=== PATIENT | male | born 1975 | race Caucasian/White ===

== ENCOUNTER 2019-10-17 12:14 | Emergency (ER) | payer OTHER ==
[2019-10-17] MEDS ORDERED: Aspirin 81 MG Tab.Chew PO ONE (12:30)
[2019-10-17] MEDS ORDERED: Sodium Chloride 0.9% 10 ML Syringe FLUSH PRN (12:30)
--- NOTE | 2019-10-17 14:47 | EDM.PDOC ---
ED HPI GENERAL MEDICAL PROBLEM - General Chief Complaint: Chest Pain Stated Complaint: CHEST TIGHTNESS Time Seen by Provider: 10/17/19 12:21 Source of Information: Reports: Patient History Limitations: Reports: No Limitations - History of Present Illness INITIAL COMMENTS - FREE TEXT/NARRATIVE: The patient presents with chest pain. This has been going on for about 1 to 2 weeks. At about that time he stopped drinking so much mountain dew. He has no shortness of breath. He described it as a tightness. He has no fever, chills, cough, congestion, runny nose, abdominal pain, nausea, vomiting, pain or swelling in his legs. He has no swelling or pain in his legs. He has no history of DVT or PE. He does smoke but he has no other medical problems such as hypertension, hypercholesterolemia or diabetes. Onset: Gradual Duration: Week(s): (2) Location: Reports: Chest Quality: Reports: Other (tightness) Severity: Mild Improves with: Reports: None Worsens with: Reports: None Associated Symptoms: Reports: Chest Pain. Denies: Cough, Fever/Chills, Headaches, Nausea/Vomiting, Shortness of Breath Left Chest Pain Score (Numeric/FACES): 2 - Related Data Allergies Allergy/AdvReac Type Severity Reaction Status Date / Time No Known Allergies Allergy Verified 10/17/19 12:22 Home Meds: Home Meds . [No Known Home Meds] 10/17/19 [History] Past Medical History Gastrointestinal History: Reports: Other (See Below) Other Gastrointestinal History: rectal abcess - Infectious Disease History Infectious Disease History: Reports: Chicken Pox Social & Family History - Family History Family Medical History: Noncontributory - Tobacco Use Smoking Status *Q: Current Every Day Smoker Years of Tobacco use: 20 Packs/Tins Daily: 0.2 - Caffeine Use Caffeine Use: Reports: Soda - Recreational Drug Use Recreational Drug Use: No ED ROS GENERAL - Review of Systems Review Of Systems: See Below Constitutional: Reports: No Symptoms HEENT: Reports: No Symptoms Respiratory: Reports: No Symptoms Cardiovascular: Reports: Chest Pain Endocrine: Reports: No Symptoms GI/Abdominal: Reports: No Symptoms : Reports: No Symptoms Musculoskeletal: Reports: No Symptoms ED EXAM, GENERAL - Physical Exam Exam: See Below Exam Limited By: No Limitations General Appearance: Alert, No Apparent Distress Ears: Normal External Exam Nose: Normal Inspection Head: Atraumatic, Normocephalic Neck: Normal Inspection Respiratory/Chest: No Respiratory Distress, Lungs Clear, Normal Breath Sounds Cardiovascular: Regular Rate, Rhythm, No Edema, No Murmur GI/Abdominal: Soft, Non-Tender, No Organomegaly, No Mass Back Exam: Normal Inspection Extremities: Normal Inspection Neurological: Alert, Oriented, No Motor/Sensory Deficits EKG INTERPRETATION EKG Date: 10/17/19 Time: 12:27 Rhythm: NSR Rate (Beats/Min): 79 [place]: Normal P-Wave: Present QRS: Normal ST-T: Normal QT: Normal Course - Vital Signs Last Recorded V/S: Last Vital Signs Temp 97.8 F 10/17/19 12:20 Pulse 78 10/17/19 12:20 Resp 19 10/17/19 12:20 BP 154/99 H 10/17/19 12:20 Pulse Ox 94 L 10/17/19 12:20 - Orders/Labs/Meds Orders: Active Orders 24 hr Category Date Time Status Cardiac Monitoring [RC] . DIRECTED Care 10/17/19 12:30 Active EKG Documentation Completion [RC] ASDIRECTED Care 10/17/19 14:37 Active EKG Documentation Completion [RC] STAT Care 10/17/19 12:31 Active Peripheral IV Care [RC] . DIRECTED Care 10/17/19 12:31 Active Chest 1V Frontal [CR] Stat Exams 10/17/19 12:31 Taken TROPONIN I [CHEM] Stat Lab 10/17/19 14:36 Ordered Sodium Chloride 0.9% [Saline Flush] Med 10/17/19 12:30 Active 10 ml FLUSH ASDIRECTED PRN Peripheral IV Insertion Adult [OM.PC] Stat Oth 10/17/19 12:30 Ordered EKG 12 Lead [EK] Stat Ther 10/17/19 14:37 Ordered Medication Orders Sodium Chloride (Saline Flush) 10 ml FLUSH ASDIRECTED PRN PRN Reason: Keep Vein Open Last Admin: 10/17/19 12:36 Dose: 10 ml Labs: Laboratory Tests 10/17/19 10/17/19 10/17/19 Range/Units 12:40 12:40 12:40 WBC 6.69 (4.23-9.07) K/mm3 RBC 5.46 (4.63-6.08) M/mm3 Hgb 16.0 (13.7-17.5) gm/dl Hct 46.5 (40.1-51.0) % MCV 85.2 (79.0-92.2) fl MCH 29.3 (25.7-32.2) pg MCHC 34.4 (32.2-35.5) g/dl RDW Std Deviation 42.0 (35.1-43.9) fL Plt Count 223 (163-337) K/mm3 MPV 10.4 (9.4-12.3) fl Neut % (Auto) 52.6 (34.0-67.9) % Lymph % (Auto) 35.9 (21.8-53.1) % Fisher % (Auto) 7.8 (5.3-12.2) % Eos % (Auto) 2.8 (0.8-7.0) Baso % (Auto) 0.6 (0.1-1.2) % Neut # (Auto) 3.52 (1.78-5.38) K/mm3 Lymph # (Auto) 2.40 (1.32-3.57) K/mm3 Fisher # (Auto) 0.52 (0.30-0.82) K/mm3 Eos # (Auto) 0.19 (0.04-0.54) K/mm3 Baso # (Auto) 0.04 (0.01-0.08) K/mm3 D-Dimer, Quantitative < 0.19 L (0.19-0.50) mg/L Sodium 137 (136-145) mEq/L Potassium 4.3 (3.5-5.1) mEq/L Chloride 100 (98-107) mEq/L Carbon Dioxide 26 (21-32) mEq/L Anion Gap 15.3 H (5-15) BUN 14 (7-18) mg/dL Creatinine 1.1 (0.7-1.3) mg/dL Est Cr Clr Drug Dosing 115.15 mL/min Estimated GFR (MDRD) > 60 (>60) mL/min BUN/Creatinine Ratio 12.7 L (14-18) Glucose 108 H (74-106) mg/dL Calcium 9.1 (8.5-10.1) mg/dL Total Bilirubin 0.3 (0.2-1.0) mg/dL AST 33 (15-37) U/L ALT (16-63) U/L Alkaline Phosphatase 104 (46-116) U/L Troponin I < 0.017 (0.00-0.056) ng/mL Total Protein 7.4 (6.4-8.2) g/dl Albumin 4.0 (3.4-5.0) g/dl Globulin 3.4 gm/dL Albumin/Globulin Ratio 1.2 (1-2) Meds: Medications Generic Name Dose Route Start Last Admin Trade Name Freq PRN Reason Stop Dose Admin Sodium Chloride 10 ml 10/17/19 12:30 10/17/19 12:36 Saline Flush FLUSH 10 ml ASDIRECTED PRN Administration Keep Vein Open Discontinued Medications Generic Name Dose Route Start Last Admin Trade Name Freq PRN Reason Stop Dose Admin Aspirin 324 mg 10/17/19 12:30 10/17/19 12:36 Aspirin PO 10/17/19 12:31 324 mg ONETIME ONE Administration - Re-Assessments/Exams Free Text/Narrative Re-Assessment/Exam: 10/17/19 14:52 I ordered an IV saline lock, EKG, CXR, labs and aspirin. His EKG shows a NSR with no acute changes. His CXR looks good. His CBC and CMP look good. His troponin is negative. His D-dimer is negative. I have ordered a repeat EKG and troponin. Departure - Departure Time of Disposition: 15:00 Disposition: Home, Self-Care 01 Condition: Good Clinical Impression: Atypical chest pain Referrals: Lucius Morrison Jr, MD [Primary Care Provider] - 1 Week Forms: ED Department Discharge Additional Instructions: Take motrin or tylenol for the pain. Please return if you are worse. Follow up with your doctor within a week. Sepsis Event Note - Evaluation Sepsis Screening Result: No Definite Risk - Focused Exam Vital Signs: Vital Signs Temp Pulse Resp BP Pulse Ox 10/17/19 12:20 97.8 F 78 19 154/99 H 94 L Date Exam was Performed: 10/17/19 Time Exam was Performed: 14:54 - My Orders Last 24 Hours: My Active Orders 10/17/19 12:30 Cardiac Monitoring [RC] . DIRECTED Sodium Chloride 0.9% [Saline Flush] 10 ml FLUSH ASDIRECTED PRN Peripheral IV Insertion Adult [OM.PC] Stat 10/17/19 12:31 EKG Documentation Completion [RC] STAT Peripheral IV Care [RC] . DIRECTED Chest 1V Frontal [CR] Stat 10/17/19 14:36 TROPONIN I [CHEM] Stat 10/17/19 14:37 EKG Documentation Completion [RC] ASDIRECTED EKG 12 Lead [EK] Stat - Assessment/Plan Last 24 Hours: My Active Orders 10/17/19 12:30 Cardiac Monitoring [RC] . DIRECTED Sodium Chloride 0.9% [Saline Flush] 10 ml FLUSH ASDIRECTED PRN Peripheral IV Insertion Adult [OM.PC] Stat 10/17/19 12:31 EKG Documentation Completion [RC] STAT Peripheral IV Care [RC] . DIRECTED Chest 1V Frontal [CR] Stat 10/17/19 14:36 TROPONIN I [CHEM] Stat 10/17/19 14:37 EKG Documentation Completion [RC] ASDIRECTED EKG 12 Lead [EK] Stat
--- NOTE | 2019-10-17 16:41 | CR ---
Chest: Portable view of the chest was obtained. Comparison: No prior chest imaging is available. Heart size and mediastinum are normal. Lungs are clear. Slight scoliosis is noted within the spine. Mild endplate spurring is noted within the spine. Impression: 1. Incidental findings. Nothing acute is appreciated. Diagnostic code #2 This report was dictated in Mountain Standard Time
== END 2019-10-17 15:11 | disposition home or self-care (01) ==
LOC: JD.ED 12:14
DX: R07.89 Other chest pain (principal); F17.210 Nicotine dependence, cigarettes, uncomplicated
CPT/HCPCS: 36415; 71045; 80053; 84484; 85025; 85379; 93005; 99285; A9270; 93010; 99284

== ENCOUNTER 2020-02-27 18:57 | Emergency (ER) | payer OTHER ==
[2020-02-27] MEDS ORDERED: Alum Hydrox/Mag Hydrox/Simeth 30 ML, Lidocaine 2% 15 ML PO STA ×2 (19:46)
--- NOTE | 2020-02-27 19:51 | EDM.PDOC ---
ED HPI GENERAL MEDICAL PROBLEM - General Chief Complaint: Respiratory Problem Stated Complaint: CHEST TIGHTNESS/HURTS WHEN HE BREATHES IN Time Seen by Provider: 02/27/20 19:24 Source of Information: Reports: Patient, Other (Friend) History Limitations: Reports: No Limitations - History of Present Illness INITIAL COMMENTS - FREE TEXT/NARRATIVE: Mr. Kahn is a very pleasant 44-year-old gentleman with a past medical history significant for untreated GERD, who now presents to the ED stating that he developed upper chest tightness around 13:00 this afternoon, which developed int o a pleuritic pain with inspiration around 17:00. His pain is also made worse if he is supine. He took 2 full-strength aspirin around 18:15. No prior similar symptoms. The patient states that he is not exactly dyspneic, rather, it is painful for him to breathe. He also states that he felt feverish, insofar as he felt sweaty, around 13:00, but that he took some Tylenol, and now he feels better in that regard. Here in the ED, the patient's initial BP is found to be slightly elevated at 147/87, otherwise, he is hemodynamically stable, afebrile, saturating 95% on room air. Other than today's symptoms, the patient denies recent fever, chills, sore throat, ear pain, nasal or sinus congestion, cough, dyspnea, chest pain, palpitations, nausea, vomiting, constipation, diarrhea, abdominal pain, urinary symptoms, recent weight gain or weight loss, recent bloody bowel movements or black bowel movements, recent joint aches, headaches, or rashes. The patient states that he returned from a trip to [place] last week, however, he denies any recent edema. The patient's PCP is Dr. Lucius Morrison. Chest Pain Score (Numeric/FACES): 7 - Related Data Allergies Allergy/AdvReac Type Severity Reaction Status Date / Time No Known Allergies Allergy Verified 02/27/20 19:19 Home Meds: Home Meds . [No Known Home Meds] 10/17/19 [History] Past Medical History Gastrointestinal History: Reports: GERD (untreated), Other (See Below) (Perirectal abcess) Musculoskeletal History: Reports: Fracture (Right foot) Endocrine/Metabolic History: Reports: Obesity/BMI 30+ - Infectious Disease History Infectious Disease History: Reports: Chicken Pox - Past Surgical History HEENT Surgical History: Reports: Oral Surgery (wisdom teeth extraction) Musculoskeletal Surgical History: Reports: Other (See Below) (Right 4th 4th finger I & D. Right foot fracture repair.) Social & Family History - Family History Family Medical History: Noncontributory - Tobacco Use Smoking Status *Q: Current Every Day Smoker Years of Tobacco use: 21 Packs/Tins Daily: 1 - Caffeine Use Caffeine Use: Reports: Soda (Large amounts of Mountain Dew) - Alcohol Use Alcohol Use History: Yes Alcohol Use Frequency: Rarely - Recreational Drug Use Recreational Drug Use: No - Living Situation & Occupation Living situation: Reports: Single, with Significant Other (Girlfriend) Occupation: Employed (Drill pipeline superintendent division) ED ROS GENERAL - Review of Systems Review Of Systems: Comprehensive ROS is negative, except as noted in HPI. ED EXAM, GENERAL - Physical Exam Exam: See Below Exam Limited By: No Limitations General Appearance: Alert, WD/WN, Mild Distress (appears uncomfortable) Eye Exam: Bilateral Eye: EOMI, Normal Inspection Ears: Normal External Exam, Hearing Grossly Normal Nose: Normal Inspection Throat/Mouth: Normal Inspection, Normal Lips, Normal Voice, No Airway Compromise Head: Atraumatic, Normocephalic Neck: Normal Inspection, Full Range of Motion Respiratory/Chest: No Respiratory Distress, Lungs Clear, Normal Breath Sounds, No Accessory Muscle Use, Chest Non-Tender (including the bilateral upper chest). No: Decreased Breath Sounds, Crackles, Rhonchi, Wheezing, Stridor, Prolonged Expiration Cardiovascular: Normal Peripheral Pulses, Regular Rate, Rhythm, No Edema, No Gallop, No JVD, No Murmur, No Rub Peripheral Pulses: 3+: Radial (L), Radial (R) GI/Abdominal: Normal Bowel Sounds, Soft, Non-Tender, No Organomegaly, No Distention, No Abnormal Bruit, No Mass (Male) Exam: Deferred Back Exam: Normal Inspection, Full Range of Motion, NT Extremities: Normal Inspection, Normal Range of Motion, No Pedal Edema, Normal Capillary Refill Neurological: Alert, Oriented, Normal Cognition, No Motor/Sensory Deficits Psychiatric: Normal Affect Skin Exam: Warm, Dry, Intact, Normal Color, No Rash EKG INTERPRETATION EKG Date: 02/27/20 Time: 20:10 Rhythm: NSR Rate (Beats/Min): 88 [place]: Normal P-Wave: Present QRS: Normal ST-T: Normal QT: Normal Comparison: No Change (10/17/2019) Course - Vital Signs Last Recorded V/S: Last Vital Signs Temp 36.5 C 02/27/20 19:17 Pulse 99 02/27/20 21:45 Resp 18 02/27/20 21:45 BP 144/99 H 02/27/20 21:45 Pulse Ox 95 02/27/20 21:45 - Orders/Labs/Meds Orders: Active Orders 24 hr Category Date Time Status EKG Documentation Completion [RC] STAT Care 02/27/20 19:44 Active PRO B-TYPE NATRIUR PEPT,BNPPRO [CHEM] Stat Lab 02/27/20 20:06 Received Labs: Laboratory Tests 02/27/20 02/27/20 02/27/20 Range/Units 20:06 20:06 20:06 WBC 13.56 H (4.23-9.07) K/mm3 RBC 5.43 (4.63-6.08) M/mm3 Hgb 15.5 (13.7-17.5) gm/dl Hct 46.2 (40.1-51.0) % MCV 85.1 (79.0-92.2) fl MCH 28.5 (25.7-32.2) pg MCHC 33.5 (32.2-35.5) g/dl RDW Std Deviation 41.0 (35.1-43.9) fL Plt Count 264 (163-337) K/mm3 MPV 10.4 (9.4-12.3) fl Neutrophils % (Manual) 76 H (40-60) % Band Neutrophils % 0 (0-10) % Lymphocytes % (Manual) 18 L (20-40) % Atypical Lymphs % 0 % Monocytes % (Manual) 5 (2-10) % Eosinophils % (Manual) 1 (0.8-7.0) % Basophils % (Manual) 0 L (0.2-1.2) Platelet Estimate Adequate RBC Morph Comment Normal D-Dimer, Quantitative 0.24 (0.19-0.50) mg/L Sodium 143 (136-145) mEq/L Potassium 3.9 (3.5-5.1) mEq/L Chloride 104 (98-107) mEq/L Carbon Dioxide 27 (21-32) mEq/L Anion Gap 15.9 H (5-15) BUN 14 (7-18) mg/dL Creatinine 1.4 H (0.7-1.3) mg/dL Est Cr Clr Drug Dosing 90.48 mL/min Estimated GFR (MDRD) 55 (>60) mL/min BUN/Creatinine Ratio 10.0 L (14-18) Glucose 118 H (74-106) mg/dL Calcium 9.1 (8.5-10.1) mg/dL Total Bilirubin 0.4 (0.2-1.0) mg/dL AST 31 (15-37) U/L ALT 44 (16-63) U/L Alkaline Phosphatase 97 (46-116) U/L Troponin I < 0.017 (0.00-0.056) ng/mL Total Protein 7.6 (6.4-8.2) g/dl Albumin 3.8 (3.4-5.0) g/dl Globulin 3.8 gm/dL Albumin/Globulin Ratio 1.0 (1-2) Meds: Medications Discontinued Medications Generic Name Dose Route Start Last Admin Trade Name Freq PRN Reason Stop Dose Admin Al Hydroxide/Mg Hydroxide 30 0 ml 02/27/20 19:46 02/27/20 20:09 ml/ Lidocaine HCl 15 ml PO 02/27/20 19:47 45 ml ONETIME STA Administration Hydromorphone HCl 1 mg 02/27/20 21:10 02/27/20 21:17 Dilaudid IM 02/27/20 21:11 1 mg ONETIME ONE Administration - Re-Assessments/Exams Free Text/Narrative Re-Assessment/Exam: 02/27/20 19:46 As above, the patient developed upper chest tightness around 13:00 this afternoon, which became a pleuritic pain around 17:00, made worse if he is supine. No actual dyspnea other than it is painful to breathe. His exam is unremarkable. I have ordered a workup that includes bloodwork, a chest XRay, and an ECG. In the meantime, the patient will be given a GI cocktail, to see if that has any effect. 02/27/20 20:32 Two-view chest radiograph appears to be grossly normal. The cardiac silhouette is within normal limits. No pulmonary vascular congestion. No pleural effusions. No focal infiltrate. No pneumothorax. Formal read per the Radiologist pending. 02/27/20 20:58 The patient's CBC is remarkable for a WBC count elevated at 13.56, but with 0% bandemia. The remainder of his CBC is unremarkable. His CMP is remarkable for an anion gap slightly elevated at 15.9, but with a bicarbonate normal at 27. His Cr is elevated at 1.4, but with a BUN normal at 14. The remainder of his CMP is unremarkable. His troponin is undetectably low. His D-dimer is within normal limits at 0.24. Notified by lab that the BNP is indefinitely delayed, however, since the patient does not have opacities on his chest x-ray, the BNP is clinically irrelevant. 02/27/20 21:11 The patient states that the GI cocktail did nothing for his pain. He is requesting something for pain. I have ordered IM Dilaudid. 02/27/20 21:24 Test results discussed with the patient and his friend. As above, the patient has a mildly elevated WBC count, but with no left shift, and he has some new renal insufficiency since October, but nothing in his work-up tonight that would explain his upper chest pain. The patient mentioned that he "dislocated" his neck about 10 days ago, by which he means that he ian it while mowing the lawn. He was experiencing some neck pain, and stated that he treated it with "quite a bit" of ibuprofen. I confirmed that nerve irritation or impingement could be responsible for his chest pain, however, even with high doses, I doubt that 10 days of ibuprofen would cause renal insufficiency. Going forward, I recommended that he switch to Tylenol instead of ibuprofen, and drink plenty of fluids. His friend mentioned that he drinks a lot of Mountain Dew, and since caffeine can be of diuretic, I recommended that perhaps he drink less of that. I recommended that he follow-up with his PCP, Dr. Lucius Morrison, to discuss the option of getting an MRI of his neck to see if there is any nerve irritation or impingement. The patient said that he will likely wait a while, to see if he gets better or worse, before going to Dr. Morrison. Departure - Departure Time of Disposition: 21:26 Disposition: Home, Self-Care 01 Condition: Good Clinical Impression: Chest pain of uncertain etiology, Acute renal insufficiency - Discharge Information *PRESCRIPTION DRUG MONITORING PROGRAM REVIEWED*: Not Applicable *COPY OF PRESCRIPTION DRUG MONITORING REPORT IN PATIENT COREY: Not Applicable Instructions: Acute Kidney Injury, Adult, Nonspecific Chest Pain, Adult, [id number] Referrals: Lucius Morrison Jr, MD [Primary Care Provider] - Forms: ED Department Discharge Additional Instructions: You were seen in the emergency room after developing chest discomfort that de veloped into chest pain with inspiration. Work-up in the ER included blood work, a chest x-ray, and an ECG. Your blood work found that your kidney function is lightly impaired, whereas it was normal in October. The remainder of your work-up, however, was unremarkable, and does not explain the cause of your pain. It is possible that your chest pain is due to nerve irritation or impingement from your neck. Because of your kidney dysfunction, we recommend that you stop taking ibuprofen. You may take [id number] Tylenol as needed for discomfort. We recommend that you stay well-hydrated, and consider decreasing the amount of Mountain Dew that you drink. We recommend that you follow-up with your PCP, Dr. Lucius Morrison, to discuss getting an MRI of your neck, to look for nerve irritation or impingement. If any other problems, please do not hesitate to return to the ER. Sepsis Event Note (ED) - Evaluation Sepsis Screening Result: No Definite Risk - Focused Exam Vital Signs: Vital Signs Temp Pulse Resp BP Pulse Ox 02/27/20 21:45 99 18 144/99 H 95 02/27/20 19:17 36.5 C 95 18 147/87 H 95 - My Orders Last 24 Hours: My Active Orders 02/27/20 19:44 EKG Documentation Completion [RC] STAT 02/27/20 20:06 PRO B-TYPE NATRIUR PEPT,BNPPRO [CHEM] Stat - Assessment/Plan Last 24 Hours: My Active Orders 02/27/20 19:44 EKG Documentation Completion [RC] STAT 02/27/20 20:06 PRO B-TYPE NATRIUR PEPT,BNPPRO [CHEM] Stat
--- NOTE | 2020-02-27 20:39 | CR ---
Chest: 2 views of the chest were obtained. Comparison: Prior chest x-ray of 10/17/19. Central lung markings are slightly increased believed to represent mild bronchitis. Lungs otherwise are clear. No alveolar type densities are seen. Heart size and mediastinum are normal. Scoliosis is noted within the spine with scattered degenerative change. Impression: 1. Central lung markings are slightly increased possibly due to mild bronchitis. 2. Other findings believed to be chronic. Diagnostic code #3 Study was dictated in MDT
[2020-02-27] MEDS ORDERED: HYDROmorphone 1 MG/ML Syringe IM ONE (21:10)
== END 2020-02-27 21:45 | disposition home or self-care (01) ==
LOC: JD.ED 18:57
DX: R07.89 Other chest pain (principal); N28.9 Disorder of kidney and ureter, unspecified; E66.9 Obesity, unspecified; F17.210 Nicotine dependence, cigarettes, uncomplicated; Z68.27 Body mass index [BMI] 27.0-27.9, adult
CPT/HCPCS: 36415; 71046; 80053; 83880; 84484; 85007; 85027; 85379; 93005; 96372; 99285; A9270; J1170; 93010; 99284

== ENCOUNTER 2021-02-24 11:00 | Day surgery (SDC) | payer OTHER ==
--- NOTE | 2021-02-24 11:45 | EDM.PDOC ---
ED HPI GENERAL MEDICAL PROBLEM - General Chief Complaint: Skin Complaint Stated Complaint: ABSCESS NEAR BUTTOCK Time Seen by Provider: 02/24/21 11:12 Source of Information: Reports: Patient, RN Notes Reviewed History Limitations: Reports: No Limitations - History of Present Illness INITIAL COMMENTS - FREE TEXT/NARRATIVE: Patient is a 45-year-old male presenting to the emergency department with complaints of abscess near his buttocks. He reports for the last week he has been having discomfort in this area that has been progressively worsening. Complains of pain with coughing or sneezing. It is not painful to have a bowel movement however. He does have a history of perirectal abscess a number of years ago which required surgical I&D. He denies any fever, chills, nausea, or vomiting. Reports that he has not ate or drink since last evening in anticipation of coming in this morning. Left Upper Anus Pain Score (Numeric/FACES): 4 - Related Data Allergies Allergy/AdvReac Type Severity Reaction Status Date / Time Contrast Dye Allergy Nausea Uncoded 02/24/21 11:12 Home Meds: Home Meds . [No Known Home Meds] 10/17/19 [History] Past Medical History Cardiovascular History: Reports: None Respiratory History: Reports: None Gastrointestinal History: Reports: GERD, Other (See Below) Other Gastrointestinal History: rectal abcess Genitourinary History: Reports: None Musculoskeletal History: Reports: Fracture Neurological History: Reports: None Psychiatric History: Reports: None Endocrine/Metabolic History: Reports: Obesity/BMI 30+ Hematologic History: Reports: None Immunologic History: Reports: None Oncologic (Cancer) History: Reports: None Dermatologic History: Reports: None - Infectious Disease History Infectious Disease History: Reports: Chicken Pox - Past Surgical History HEENT Surgical History: Reports: Oral Surgery Musculoskeletal Surgical History: Reports: Other (See Below) Other Musculoskeletal Surgeries/Procedures:: R foot surgery, R hand surgery Social & Family History - Family History Family Medical History: No Pertinent Family History HEENT: Reports: None Cardiac: Reports: None Respiratory: Reports: None GI: Reports: None : Reports: None OBGYN: Reports: None Musculoskeletal: Reports: None Neurological: Reports: None Psychiatric: Reports: None Endocrine/Metabolic: Reports: None Hematologic: Reports: None Oncologic: Reports: None - Tobacco Use Tobacco Use Status *Q: Current Every Day Tobacco User Years of Tobacco use: 24 Packs/Tins Daily: 1.5 - Caffeine Use Caffeine Use: Reports: Soda - Recreational Drug Use Recreational Drug Use: No - Living Situation & Occupation Living situation: Reports: Single, with Significant Other (Girlfriend) Occupation: Employed (Drill pipe installer) ED ROS GENERAL - Review of Systems Review Of Systems: See Below ED EXAM, SKIN/RASH Exam: See Below Exam Limited By: No Limitations General Appearance: Alert, WD/WN, No Apparent Distress Respiratory/Chest: No Respiratory Distress, Lungs Clear, Normal Breath Sounds, No Accessory Muscle Use, Chest Non-Tender Cardiovascular: Normal Peripheral Pulses, Regular Rate, Rhythm, No Edema, No Gallop, No JVD, No Murmur, No Rub Rectal (Males) Exam: Perirectal Abscess (Palpable area of tenderness approximately 3 cm proximal to the rectum.) Neurological: Alert, Oriented, CN II-XII Intact, Normal Cognition, Normal Gait, Normal Reflexes, No Motor/Sensory Deficits Psychiatric: Normal Affect, Normal Mood Course - Vital Signs Last Recorded V/S: Last Vital Signs Temp 97.3 F 02/24/21 11:18 Pulse 73 02/24/21 11:18 Resp 18 02/24/21 11:18 BP 123/72 02/24/21 11:18 Pulse Ox 98 02/24/21 11:18 - Orders/Labs/Meds Orders: Active Orders 24 hr Category Date Time Status Patient Status [ADT] Routine ADT 02/24/21 12:06 Active C-REACTIVE PROTEIN [CHEM] Stat Lab 02/24/21 11:56 Received COMPREHENSIVE METABOLIC PN,CMP [CHEM] Stat Lab 02/24/21 11:56 Received CORONAVIRUS COVID-19 EMILY [MOLEC] Routine Lab 02/24/21 11:58 Received Schedule Procedure [COMM] Stat Oth 02/24/21 12:07 Ordered Labs: Laboratory Tests 02/24/21 Range/Units 11:56 WBC 9.55 H (4.23-9.07) K/mm3 RBC 5.31 (4.63-6.08) M/mm3 Hgb 15.5 (13.7-17.5) gm/dl Hct 45.7 (40.1-51.0) % MCV 86.1 (79.0-92.2) fl MCH 29.2 (25.7-32.2) pg MCHC 33.9 (32.2-35.5) g/dl RDW Std Deviation 43.9 (35.1-43.9) fL Plt Count 189 D (163-337) K/mm3 MPV 10.4 (9.4-12.3) fl Neut % (Auto) 70.0 H (34.0-67.9) % Lymph % (Auto) 21.7 L (21.8-53.1) % [place] % (Auto) 6.7 (5.3-12.2) % Eos % (Auto) 1.3 (0.8-7.0) Baso % (Auto) 0.2 (0.1-1.2) % Neut # (Auto) 6.69 H (1.78-5.38) K/mm3 Lymph # (Auto) 2.07 (1.32-3.57) K/mm3 [place] # (Auto) 0.64 (0.30-0.82) K/mm3 Eos # (Auto) 0.12 (0.04-0.54) K/mm3 Baso # (Auto) 0.02 (0.01-0.08) K/mm3 Meds: Medications Discontinued Medications Generic Name Dose Route Start Last Admin Trade Name Freq PRN Reason Stop Dose Admin Bupivacaine HCl/Epinephrine Bitart Confirm 02/24/21 12:28 Bupivacaine 0.5%/Epinephrine 1:200,000 50 Ml Mdv Administered 02/24/21 12:29 Dose 50 ml .ROUTE .STK-MED ONE Fentanyl Confirm 02/24/21 11:59 Fentanyl 250 Mcg/5 Ml Sdv Administered 02/24/21 12:00 Dose 250 mcg .ROUTE .STK-MED ONE Lidocaine HCl Confirm 02/24/21 11:58 Xylocaine-Mpf 1% Administered 02/24/21 11:59 Dose 4 mls @ as directed .ROUTE .STK-MED ONE Midazolam HCl Confirm 02/24/21 11:59 Midazolam 1 Mg/Ml 2 Ml Sdv Administered 02/24/21 12:00 Dose 2 mg .ROUTE .STK-MED ONE Ondansetron HCl Confirm 02/24/21 11:58 Ondansetron 4 Mg/2 Ml Sdv Administered 02/24/21 11:59 Dose 4 mg .ROUTE .STK-MED ONE Propofol Confirm 02/24/21 11:59 Propofol 200 Mg/20 Ml Sdv Administered 02/24/21 12:00 Dose 200 mg .ROUTE .STK-MED ONE - Re-Assessments/Exams Free Text/Narrative Re-Assessment/Exam: Patient is a 45-year-old male presenting to the emergency department with complaints of perirectal abscess. On exam, he does have a palpable area of induration and tenderness approximately 3 cm proximal to the rectum. I have ordered blood work and Covid screen. Case was discussed with surgeon on-call, Dr. Gary. He will be in to see the patient. Patient has not ate or drink since last evening. 02/24/21 12:34 Dr. Gary was here to evaluate patient. He will take him to the OR for surgical I&D. Departure - Departure Time of Disposition: 12:34 Disposition: DC/Tfer to [facility] Condition: Good Clinical Impression: Perirectal abscess - Discharge Information Sepsis Event Note (ED) - Evaluation Sepsis Screening Result: No Definite Risk - Focused Exam Vital Signs: Vital Signs Temp Pulse Resp BP Pulse Ox 02/24/21 11:18 97.3 F 73 18 123/72 98 - My Orders Last 24 Hours: My Active Orders 02/24/21 11:56 C-REACTIVE PROTEIN [CHEM] Stat COMPREHENSIVE METABOLIC PN,CMP [CHEM] Stat 02/24/21 11:58 CORONAVIRUS COVID-19 EMILY [MOLEC] Routine 02/24/21 12:06 Patient Status [ADT] Routine - Assessment/Plan Last 24 Hours: My Active Orders 02/24/21 11:56 C-REACTIVE PROTEIN [CHEM] Stat COMPREHENSIVE METABOLIC PN,CMP [CHEM] Stat 02/24/21 11:58 CORONAVIRUS COVID-19 EMILY [MOLEC] Routine 02/24/21 12:06 Patient Status [ADT] Routine
[2021-02-24] MEDS ORDERED: Lidocaine 1% 4 ML ONE (11:58)
[2021-02-24] MEDS ORDERED: Ondansetron 4 MG/2 ML SDV ONE (11:58)
[2021-02-24] MEDS ORDERED: Propofol 200 MG/20 ML SDV ONE ×2 (11:59→12:59)
[2021-02-24] MEDS ORDERED: fentaNYL 250 MCG/5 ML SDV ONE (11:59)
[2021-02-24] MEDS ORDERED: Midazolam 1 MG/ML 2 ML SDV ONE (11:59)
--- NOTE | 2021-02-24 12:15 | PCM.PREANE ---
Preanesthetic Assessment - Procedure Proposed Procedure: Rectal abscess drainage - Anesthesia/Transfusion/Family Hx Anesthesia History: Prior Anesthesia Without Reaction Family History of Anesthesia Reaction: No Transfusion History: No Prior Transfusion(s) Intubation History: Unknown - Review of Systems General: No Symptoms Pulmonary: No Symptoms Cardiovascular: No Symptoms Gastrointestinal: No Symptoms Neurological: No Symptoms Other: Reports: None - Physical Assessment NPO Status Date: 02/23/21 NPO Status Time: 20:00 Vital Signs: Last Vital Signs Temp 97.3 F 02/24/21 11:18 Pulse 73 02/24/21 11:18 Resp 18 02/24/21 11:18 BP 123/72 02/24/21 11:18 Pulse Ox 98 02/24/21 11:18 1200: 98/67 HR 79 94% RR 16 Height: 2.03 m Weight: 115.984 kg ASA Class: 2 Mental Status: Alert & Oriented x3 Airway Class: Mallampati = 2 Dentition: Reports: Missing Tooth/Teeth (Missing teeth, no loose teeth), Caries Thyro-Mental Finger Breadths: 3 Mouth Opening Finger Breadths: 3 ROM/Head Extension: Full Lungs: Clear to Auscultation, Normal Respiratory Effort Cardiovascular: Regular Rate, Regular Rhythm - Lab Values: Labs reviewed and okay to proceed - Allergies Allergies/Adverse Reactions: Allergies Allergy/AdvReac Type Severity Reaction Status Date / Time Contrast Dye Allergy Nausea Uncoded 02/24/21 11:12 - Blood Blood Available: No Product(s) Available: None - Anesthesia Plan Pre-Op Medication Ordered: None - Acknowledgements Anesthesia Type Planned: MAC Pt an Appropriate Candidate for the Planned Anesthesia: Yes Alternatives and Risks of Anesthesia Discussed w Pt/Guardian: Yes Pt/Guardian Understands and Agrees with Anesthesia Plan: Yes PreAnesthesia Questionnaire Cardiovascular History: Reports: None Respiratory History: Reports: None Gastrointestinal History: Reports: GERD, Other (See Below) Other Gastrointestinal History: rectal abcess Genitourinary History: Reports: None Musculoskeletal History: Reports: Fracture (left foot) Neurological History: Reports: None Psychiatric History: Reports: None Endocrine/Metabolic History: Reports: Obesity/BMI 30+ Hematologic History: Reports: None Immunologic History: Reports: None Oncologic (Cancer) History: Reports: None Dermatologic History: Reports: None - Infectious Disease History Infectious Disease History: Reports: Chicken Pox - Past Surgical History HEENT Surgical History: Reports: Oral Surgery Musculoskeletal Surgical History: Reports: Other (See Below) Other Musculoskeletal Surgeries/Procedures:: R foot surgery, R hand surgery - SUBSTANCE USE Tobacco Use Status *Q: Current Every Day Tobacco User Tobacco Use Within Last Twelve Months: Cigarettes Second Hand Smoke Exposure: No Days Per Week of Alcohol Use: 0 Number of Drinks Per Day: 0 Total Drinks Per Week: 0 Recreational Drug Use History: No - HOME MEDS Home Medications: Home Meds . [No Known Home Meds] 10/17/19 [History] - CURRENT (IN HOUSE) MEDS Current Meds: Current Medications Discontinued Medications Fentanyl (Fentanyl 250 Mcg/5 Ml Sdv) Confirm Administered Dose 250 mcg .ROUTE .STK-MED ONE Stop: 02/24/21 12:00 Lidocaine HCl (Xylocaine-Mpf 1%) Confirm Administered Dose 4 mls @ as directed .ROUTE .STK-MED ONE Stop: 02/24/21 11:59 Midazolam HCl (Midazolam 1 Mg/Ml 2 Ml Sdv) Confirm Administered Dose 2 mg .ROUTE .STK-MED ONE Stop: 02/24/21 12:00 Ondansetron HCl (Ondansetron 4 Mg/2 Ml Sdv) Confirm Administered Dose 4 mg .ROUTE .STK-MED ONE Stop: 02/24/21 11:59 Propofol (Propofol 200 Mg/20 Ml Sdv) Confirm Administered Dose 200 mg .ROUTE .STK-MED ONE Stop: 02/24/21 12:00
--- NOTE | 2021-02-24 12:19 | PCM.HP.2 ---
H&P History of Present Illness - General Date of Service: 02/24/21 Admit Problem/Dx: Admission Diagnosis/Problem Admission Diagnosis/Problem Perirectal abscess Source of Information: Patient History Limitations: Reports: No Limitations - History of Present Illness Initial Comments - Free Text/Narative: Mr. Kahn is a 45 yo man who presents with perianal pain. He has a history of perirectal abscess which was surgically drained about 4 years ago. He started noticing symptoms about four days ago. He has no history of Crohn disease or anal fistulae. He has not had any drainage around his anus. He thinks the area of tenderness is in the same place as prior. He has not been feeling sick or feverish. He does smoke cigarettes. Left Upper Anus Pain Score (Numeric/FACES): 4 - Related Data Allergies/Adverse Reactions: Allergies Allergy/AdvReac Type Severity Reaction Status Date / Time Contrast Dye Allergy Nausea Uncoded 02/24/21 11:12 Home Medications: Home Meds . [No Known Home Meds] 10/17/19 [History] Past Medical History Cardiovascular History: Reports: None Respiratory History: Reports: None Gastrointestinal History: Reports: GERD, Other (See Below) Other Gastrointestinal History: rectal abcess Genitourinary History: Reports: None Musculoskeletal History: Reports: Fracture Neurological History: Reports: None Psychiatric History: Reports: None Endocrine/Metabolic History: Reports: Obesity/BMI 30+ Hematologic History: Reports: None Immunologic History: Reports: None Oncologic (Cancer) History: Reports: None Dermatologic History: Reports: None - Infectious Disease History Infectious Disease History: Reports: Chicken Pox - Past Surgical History HEENT Surgical History: Reports: Oral Surgery Musculoskeletal Surgical History: Reports: Other (See Below) Other Musculoskeletal Surgeries/Procedures:: R foot surgery, R hand surgery Social & Family History - Family History Family Medical History: No Pertinent Family History HEENT: Reports: None Cardiac: Reports: None Respiratory: Reports: None GI: Reports: None : Reports: None OBGYN: Reports: None Musculoskeletal: Reports: None Neurological: Reports: None Psychiatric: Reports: None Endocrine/Metabolic: Reports: None Hematologic: Reports: None Oncologic: Reports: None - Tobacco Use Tobacco Use Status *Q: Current Every Day Tobacco User Years of Tobacco use: 24 Packs/Tins Daily: 1.5 - Caffeine Use Caffeine Use: Reports: Soda - Recreational Drug Use Recreational Drug Use: No - Living Situation & Occupation Living situation: Reports: Single, with Significant Other (Girlfriend) Occupation: Employed (Drill supervisor pipe joints) H&P Review of Systems - Review of Systems: Review Of Systems: See Below General: Reports: No Symptoms HEENT: Reports: No Symptoms Pulmonary: Reports: No Symptoms Cardiovascular: Reports: No Symptoms Gastrointestinal: Reports: Other (perianal pain with tender palpable mass) Genitourinary: Reports: No Symptoms Musculoskeletal: Reports: No Symptoms Skin: Reports: No Symptoms Psychiatric: Reports: No Symptoms Neurological: Reports: No Symptoms Hematologic/Lymphatic: Reports: No Symptoms Immunologic: Reports: No Symptoms Exam - Exam Exam: See Below - Vital Signs Vital Signs: Last Vital Signs Temp 36.3 C 02/24/21 11:18 Pulse 73 02/24/21 11:18 Resp 18 02/24/21 11:18 BP 123/72 02/24/21 11:18 Pulse Ox 98 02/24/21 11:18 Weight: 115.984 kg - Exam General: Alert, Oriented, Cooperative HEENT: Conjunctiva Clear Neck: Supple, Trachea Midline Lungs: Clear to Auscultation, Normal Respiratory Effort Cardiovascular: Regular Rate, Regular Rhythm GI/Abdominal Exam: Other (normal appearing anus. No obvious abscess seen, but there is a tender palpable area of induration posteriorly. No fistula tract evident. ) Extremities: Normal Range of Motion Skin: Warm, Dry Neuro Extensive - Mental Status: Alert, Oriented x3, Normal Mood/Affect - Patient Data Lab Results Last 24 hrs: Laboratory Results - last 24 hr 02/24/21 Range/Units 11:56 WBC 9.55 H (4.23-9.07) K/mm3 RBC 5.31 (4.63-6.08) M/mm3 Hgb 15.5 (13.7-17.5) gm/dl Hct 45.7 (40.1-51.0) % MCV 86.1 (79.0-92.2) fl MCH 29.2 (25.7-32.2) pg MCHC 33.9 (32.2-35.5) g/dl RDW Std Deviation 43.9 (35.1-43.9) fL Plt Count 189 D (163-337) K/mm3 MPV 10.4 (9.4-12.3) fl Neut % (Auto) 70.0 H (34.0-67.9) % Lymph % (Auto) 21.7 L (21.8-53.1) % [place] % (Auto) 6.7 (5.3-12.2) % Eos % (Auto) 1.3 (0.8-7.0) Baso % (Auto) 0.2 (0.1-1.2) % Neut # (Auto) 6.69 H (1.78-5.38) K/mm3 Lymph # (Auto) 2.07 (1.32-3.57) K/mm3 [place] # (Auto) 0.64 (0.30-0.82) K/mm3 Eos # (Auto) 0.12 (0.04-0.54) K/mm3 Baso # (Auto) 0.02 (0.01-0.08) K/mm3 Result Diagrams: 02/24/21 11:56 Sepsis Event Note - Evaluation Sepsis Screening Result: No Definite Risk - Focused Exam Vital Signs: Vital Signs Temp Pulse Resp BP Pulse Ox 02/24/21 11:18 36.3 C 73 18 123/72 98 Problem List Initiated/Reviewed/Updated: Yes Orders Last 24hrs: Active Orders 24 hr Category Date Time Status Patient Status [ADT] Routine ADT 02/24/21 12:06 Active C-REACTIVE PROTEIN [CHEM] Stat Lab 02/24/21 11:56 Received COMPREHENSIVE METABOLIC PN,CMP [CHEM] Stat Lab 02/24/21 11:56 Received CORONAVIRUS COVID-19 EMILY [MOLEC] Routine Lab 02/24/21 11:58 Received Schedule Procedure [COMM] Stat Oth 02/24/21 12:07 Ordered Assessment/Plan Comment:: Perirectal abscess, second occurrence in 3-4 years. Plan for exam under anesthesia with incision and drainage of perirectal abscess- anticipate discharge to home following operation. - Mortality Measure Prognosis:: Good
[2021-02-24] MEDS ORDERED: Bupivacaine 0.5%/EPINEPHrine 1:200,000 50 ML MDV ONE (12:28)
[2021-02-24] MEDS ORDERED: Ketamine 500 mg/10 ML MDV ONE (12:34)
--- NOTE | 2021-02-24 13:30 | PCM.PRNOTE ---
- Free Text/Narrative Note: Date: 02/24/2021 Operation: incision and drainage of perianal abscess Surgeon: Marbin Gary MD Findings: approximately 10 cc of pus drained from superficial posterior perianal abscess. No evidence of fistula in ano. Internal hemorrhoids. Detailed Report: The patient was taken to the operating room and placed on the table in supine position. Timeout was performed and monitored anesthesia care was initiated. The patient was then positioned in lithotomy. Prior to prepping, a rectal exam was performed. There was a small firm area posterior to the anus consistent with perianal abscess. Digital exam was unremarkable. There was no evidence for perianal fistula. The patient was noted to have small internal hemorrhoids. Next, the perineum and anus were prepped and draped in sterile fashion. 10 cc of 0.5% Marcaine with epinephrine was injected intradermally at the site of tenderness and induration. A posterior perianal block was also administered. With the buttocks spread laterally, an 11 blade scalpel was used to make a 2 cm longitudinally oriented incision over the area of induration. Yellow-white odorless pus was immediately drained. A small hemostat was inserted into the wound to break up any loculations and pus was manually expressed. A total of about 10 cc of pus was drained. The incision was then extended transversely on either side of the initial incision creating a cruciate wound. The wound was carefully explored with a hemostat and bimanually. No area of induration or f luctuance was left after incision and drainage. The wound was fairly superficial, and packed with half-inch strip gauze packing. Dressing of ABD pad and mesh underwear was applied. The patient tolerated the procedure well.
--- NOTE | 2021-02-24 13:32 | PCM48HPAN ---
Post Anesthesia Note - EVALUATION WITHIN 48HRS OF ANESTHETIC Vital Signs in Normal Range: Yes Patient Participated in Evaluation: Yes Respiratory Function Stable: Yes Airway Patent: Yes Cardiovascular Function Stable: Yes Hydration Status Stable: Yes Pain Control Satisfactory: Yes (a level 4- fentanyl given IV) Nausea and Vomiting Control Satisfactory: Yes Mental Status Recovered: Yes Vital Signs: Last Vital Signs Temp 97.5 F 02/24/21 12:30 Pulse 75 02/24/21 12:30 Resp 20 02/24/21 12:30 BP 137/96 H 02/24/21 12:30 Pulse Ox 95 02/24/21 12:30
[2021-02-24] MEDS ORDERED: HYDROmorphone 0.5 MG/0.5 ML Syringe IVPUSH PRN (13:33)
[2021-02-24] MEDS ORDERED: Ondansetron 4 MG/2 ML SDV IVPUSH PRN (13:33)
[2021-02-24] MEDS ORDERED: fentaNYL 100 MCG/2 ML SDV IVPUSH PRN (13:33)
== END 2021-02-24 14:20 | disposition home or self-care (01) ==
LOC: JD.ED 11:00 → JD.SDS 11:54
PROVIDERS: ATTEND Surgery
DX: K61.0 Anal abscess (principal); K64.8 Other hemorrhoids; F17.210 Nicotine dependence, cigarettes, uncomplicated; E66.9 Obesity, unspecified; Z98.890 Other specified postprocedural states; Z01.812 Encounter for preprocedural laboratory examination; Z91.041 Radiographic dye allergy status; Z20.822 Contact with and (suspected) exposure to COVID-19; Z68.28 Body mass index [BMI] 28.0-28.9, adult
CPT/HCPCS: 36415; 46050; 80053; 85025; 86140; 87635; 99284; J2250; J2405; J2704; J3010; J3490; 00902; U0002